=== PATIENT | female | born 1965 | race Caucasian/White ===

== ENCOUNTER 2019-10-10 05:53 | Day surgery (SDC) | payer OTHER ==
[2019-10-10] MEDS ORDERED: Bupivacaine 0.25% SDV PF* 10 ML VIAL INJ ONE (07:05)
[2019-10-10] MEDS ORDERED: Lidocaine 1% w EPI 1:100,000* MDV 20 ML VIAL ONE (07:28)
[2019-10-10] MEDS ORDERED: Sodium Bicarbonate 8.4%* 50 ML SYRINGE ONE (07:28)
[2019-10-10 09:33] VITALS: BP 122/65
== END 2019-10-10 09:30 | disposition home or self-care (01) ==
LOC: OR 05:53
PROVIDERS: ATTEND Plastic Surgery
DX: G56.01 Carpal tunnel syndrome, right upper limb (principal); E06.3 Autoimmune thyroiditis; M19.90 Unspecified osteoarthritis, unspecified site; E55.9 Vitamin D deficiency, unspecified
CPT/HCPCS: J3490